=== PATIENT | female | born 1970 | race Caucasian/White ===

== ENCOUNTER 2018-12-19 19:28 | Emergency (ER) | payer OTHER ==
[~2018-12-19] VITALS: Ht 167.6 cm; Wt 68.0 kg
[2018-12-19] MEDS ORDERED: ONDANSETRON HCL 4 MG/2 ML VIAL IV ONE (20:30)
[2018-12-19] MEDS ORDERED: MORPHINE SULFATE 4 MG/ML SYR/VIAL IV ONE (20:30)
[2018-12-19] MEDS ORDERED: HYDROmorphone HCL 2 MG/ML VL IV ONE (23:30)
[2018-12-19] MEDS ORDERED: ETOMIDATE (2MG/ML) 20ML VIAL IV ONE (23:30)
[2018-12-19 23:31] VITALS: BP 149/88
[2018-12-20] MEDS ORDERED: ONDANSETRON HCL 4 MG/2 ML VIAL IV ONE (00:30)
== END 2018-12-20 01:11 | disposition home or self-care (01) ==
LOC: EDBD 19:28 → ER 19:28
DX: S53.125A Posterior dislocation of left ulnohumeral joint, initial encounter (principal); W01.0XXA Fall on same level from slipping, tripping and stumbling without subsequent striking against object, initial encounter; Y93.89 Activity, other specified; Y99.8 Other external cause status; Y92.89 Other specified places as the place of occurrence of the external cause
CPT/HCPCS: 24600; 73070; 96374; 96375; 96376; 99285; J1170; J2270; J2405; 99152